=== PATIENT | female | born 1960 | race Caucasian/White ===

== ENCOUNTER → 2016-10-17 | Outpatient (CLI) | payer OTHER ==
[2016-10-17 10:12] LABS: CHLORIDE,CL 109 mmol/L (98-110); SODIUM,NA 141 mmol/L (136-146)
--- NOTE | 2016-10-17 16:25 | MY ---
EXAMINATION: Bilateral digital mammography utilizing CAD. HISTORY: Screening exam. Comparison is made to previous studies dated 08/24/2015 08/12/2014, 014, 12/29/2011. FINDINGS: Bilateral fibroglandular densities. There is a single view asymmetry within the upper ri ght breast. Otherwise, no suspicious calcifications, masses or architectural distortions. No pathol ogic appearing lymph nodes, no abnormal skin thickening or nipple inversion. Other CAD highlighted regions appear normal at this time. IMPRESSION: BI-RADS category 0 - Incomplete study. Right breast diagnostic is needed for further evaluation. THE FALSE-NEGATIVE RATE OF MAMMOGRAM IS APPROXIMATELY 10%. MANAGEMENT OF A PALPABLE ABNORMALITY MUST BE BASED UPON CLINICAL GROUNDS. SENSITIVITY FOR DETECTION OF ABNORMALITIES IN DENSE BREASTS IS LOW. NOTE: A letter will be sent to the patient regarding findings. [facility] -- FANNY Walters [phone] - FAX [phone]
== END ==
LOC: MW.MAM 09:28
PROVIDERS: ATTEND Emergency Medicine
DX: Z12.31 Encounter for screening mammogram for malignant neoplasm of breast (principal); E03.9 Hypothyroidism, unspecified; E83.19 Other disorders of iron metabolism
CPT/HCPCS: 36415; 80048; 83550; 84443; G0202

== ENCOUNTER 2021-03-11 08:59 | Day surgery (SDC) | payer OTHER ==
--- NOTE | 2021-03-11 08:55 | PCM.PREANE ---
Preanesthetic Assessment - Anesthesia/Transfusion/Family Hx Anesthesia History: Prior Anesthesia Without Reaction Family History of Anesthesia Reaction: No - Review of Systems General: No Symptoms Pulmonary: No Symptoms Cardiovascular: No Symptoms Gastrointestinal: No Symptoms Neurological: No Symptoms Other: Reports: None - Physical Assessment NPO Status Date: 03/11/21 NPO Status Time: 00:00 Height: 5 ft 3.5 in Weight: 154 lb ASA Class: 2 Mental Status: Alert & Oriented x3 Airway Class: Mallampati = 1 Dentition: Reports: Normal Dentition Thyro-Mental Finger Breadths: 3 Mouth Opening Finger Breadths: 3 ROM/Head Extension: Full Lungs: Clear to Auscultation, Normal Respiratory Effort Cardiovascular: Regular Rate, Regular Rhythm - Allergies Allergies/Adverse Reactions: Allergies Allergy/AdvReac Type Severity Reaction Status Date / Time No Known Allergies Allergy Verified 03/08/21 07:21 - Acknowledgements Anesthesia Type Planned: General Anesthesia Pt an Appropriate Candidate for the Planned Anesthesia: Yes Alternatives and Risks of Anesthesia Discussed w Pt/Guardian: Yes Pt/Guardian Understands and Agrees with Anesthesia Plan: Yes PreAnesthesia Questionnaire HEENT History: Reports: None Cardiovascular History: Reports: None Respiratory History: Reports: None Gastrointestinal History: Reports: GERD Genitourinary History: Reports: None RFID SPECIALIST History: Reports: Musculoskeletal History: Reports: Arthritis, Back Pain, Chronic Neurological History: Reports: None Psychiatric History: Reports: Anxiety, Depression Endocrine/Metabolic History: Reports: Hypothyroidism Hematologic History: Reports: None Immunologic History: Reports: None Oncologic (Cancer) History: Reports: None Dermatologic History: Reports: None - Past Surgical History Head Surgeries/Procedures: Reports: None HEENT Surgical History: Reports: Adenoidectomy, Tonsillectomy Cardiovascular Surgical History: Reports: None Respiratory Surgical History: Reports: None GI Surgical History: Reports: Bariatric Procedure, Colonoscopy Female Surgical History: Reports: Breast Biopsy, Hysterectomy, Other (See Be low) Other Female Surgeries/Procedures: hx vaginal hysterectomy with enterocele plication & posterior colporrhaphy Endocrine Surgical History: Reports: None Neurological Surgical History: Reports: Spinal Fusion Musculoskeletal Surgical History: Reports: None, Other (See Below) Other Musculoskeletal Surgeries/Procedures:: back surgery - fusion L5-L6 Oncologic Surgical History: Reports: None Dermatological Surgical History: Reports: None - SUBSTANCE USE Tobacco Use Status *Q: Never Tobacco User Recreational Drug Use History: No - HOME MEDS Home Medications: Home Meds LORazepam 1 mg PO BEDTIME 05/02/18 [History] Levothyroxine Sodium [Synthroid] 200 mcg PO ASDIRECTED 05/02/18 [History] Omeprazole 20 mg PO ASDIRECTED 05/02/18 [History] Spironolactone [Aldactone] 100 mg PO DAILY 05/02/18 [History] buPROPion HCL [Wellbutrin Xl] 300 mg PO DAILY 05/02/18 [History] estradioL [Estradiol] 1 patch TRDERM ASDIRECTED 05/02/18 [History] Acetaminophen [Tylenol Arthritis] 2 tab PO DAILY 03/08/21 [History] Calcium Carbonate [Calcium] 500 mg PO DAILY 03/08/21 [History] Cetirizine [ZyrTEC] 5 mg PO BID 03/08/21 [History] Cholecalciferol (Vitamin D3) [Vitamin D3] 5,000 units PO DAILY 03/08/21 [History] Cyanocobalamin (Vitamin B12) [Vitamin B12] 1,000 mcg PO DAILY 03/08/21 [History] Ferrous Sulfate [Slow Fe] 45 mg PO DAILY 03/08/21 [History] Fish Oil/Borage/Flax/Om3,6,9 1 [[place]esa 3-6-9 1,200 mg Softgel] 1,200 mg PO DAILY 03/08/21 [History] L.acidoph,Paracasei, B.lactis [Probiotic] 1 tab PO DAILY 03/08/21 [History] Multivit-Minerals/FA/Lycopene [One Daily Tablet] 1 tab PO DAILY 03/08/21 [History] Vitamin B Complex 1 tab PO DAILY 03/08/21 [History] - CURRENT (IN HOUSE) MEDS Current Meds: Current Medications Albuterol (Albuterol 0.083% 2.5 Mg/3 Ml Neb Soln) 2.5 mg NEB ONETIME PRN PRN Reason: Wheezing Droperidol (Droperidol 5 Mg/2 Ml Sdv) 0.625 mg IVPUSH ONETIME PRN PRN Reason: Nausea/Vomiting Fentanyl (Fentanyl 100 Mcg/2 Ml Sdv) 50 mcg IVPUSH Q5M PRN PRN Reason: Pain (mild 1-3) Hydromorphone HCl (Hydromorphone 1 Mg/Ml Syringe) 1 mg IVPUSH Q10M PRN PRN Reason: Pain (moderate 4-6) Metoclopramide HCl (Metoclopramide 10 Mg/2 Ml Sdv) 10 mg IVPUSH ONETIME PRN PRN Reason: Nausea/Vomiting Morphine Sulfate (Morphine 2 Mg/Ml Syringe) 2 mg IVPUSH Q10M PRN PRN Reason: Pain (severe 7-10) Naloxone HCl (Naloxone 0.4 Mg/Ml Sdv) 0.1 mg IVPUSH ASDIRECTED PRN PRN Reason: Respiratory Depression Ondansetron HCl (Ondansetron 4 Mg/2 Ml Sdv) 4 mg IVPUSH ONETIME PRN PRN Reason: Nausea/Vomiting Sodium Chloride (Sodium Chloride 0.9% 10 Ml Syringe) 10 ml FLUSH ASDIRECTED PRN PRN Reason: Keep Vein Open Sodium Chloride (Sodium Chloride 0.9% 2.5 Ml Syringe) 2.5 ml FLUSH ASDIRECTED PRN PRN Reason: Keep Vein Open Sodium Chloride (Sodium Chloride 0.9% 10 Ml Sdv) 10 ml IV ASDIRECTED PRN PRN Reason: IV Use Discontinued Medications Cefazolin Sodium/Dextrose 1 gm (/ Premix) 50 mls @ 100 mls/hr IV ONETIME ONE Stop: 03/11/21 05:29 Scopolamine (Scopolamine 1.5 Mg Transdermal Patch) Confirm Administered Dose 1.5 mg .ROUTE .STK-MED ONE Stop: 03/11/21 08:10
[~2021-03-11 08:59] MED LIST: Albuterol 0.083% 2.5 MG/3 ML Neb Soln NEB PRN; HYDROmorphone 1 MG/ML Syringe IVPUSH PRN; Metoclopramide 10 MG/2 ML SDV IVPUSH PRN; Morphine 2 MG/ML SYRINGE IVPUSH PRN; Naloxone 0.4 MG/ML SDV IVPUSH PRN; Ondansetron 4 MG/2 ML SDV IVPUSH PRN; Scopolamine 1.5 MG Transdermal Patch ONE; Sodium Chloride 0.9% 10 ML SDV IV PRN; Sodium Chloride 0.9% 10 ML Syringe FLUSH PRN; Sodium Chloride 0.9% 2.5 ML Syringe FLUSH PRN; ceFAZolin 1 GM in Premix Bag 1 BAG IV ONE; fentaNYL 100 MCG/2 ML SDV IVPUSH PRN
[2021-03-11] MEDS ORDERED: Dexamethasone 4 MG/ML 5 ML MDV ONE (10:17)
[2021-03-11] MEDS ORDERED: Propofol 200 MG/20 ML SDV ONE (10:17)
[2021-03-11] MEDS ORDERED: fentaNYL 100 MCG/2 ML SDV ONE ×2 (10:17→11:09)
[2021-03-11] MEDS ORDERED: Ondansetron 4 MG/2 ML SDV ONE (10:17)
[2021-03-11] MEDS ORDERED: Ketorolac 30 MG/ML SDV ONE (10:19)
[2021-03-11] MEDS ORDERED: ceFAZolin 1 GM Vial ONE (10:21)
[2021-03-11] MEDS ORDERED: Lidocaine 2% 5 ML SDV ONE (10:22)
[2021-03-11 10:26] LABS: BLOOD UREA NITROGEN,BUN 8 mg/dL (7.0-18.0); CARBON DIOXIDE,CO2 26.9 mmol/L (21.0-32.0); CHLORIDE,CL 104 mmol/L (98-107); GLUCOSE RANDOM 84 mg/dL (74-106); POTASSIUM,K 4.3 mmol/L (3.5-5.1); SODIUM,NA 139 mmol/L (136-145)
[2021-03-11] MEDS ORDERED: Lactated Ringers 1,000 ML IV SCH (11:15)
[2021-03-11] MEDS ORDERED: Ondansetron 4 MG/2 ML SDV IVPUSH PRN (11:27)
[2021-03-11] MEDS ORDERED: Promethazine 25 MG/ML SDV IM PRN (11:27)
[2021-03-11] MEDS ORDERED: Acetaminophen/oxyCODONE 325-5 MG Tab PO PRN ×2 (11:27)
[2021-03-11] MEDS ORDERED: Morphine 4 MG/ML Syringe IVPUSH PRN (11:27)
[2021-03-11] MEDS ORDERED: Ketorolac 30 MG/ML SDV IVPUSH PRN (11:27)
[2021-03-11] MEDS ORDERED: Ketorolac 30 MG/ML SDV IVPUSH ONE (11:27)
--- NOTE | 2021-03-11 11:38 | PCM.POSTAN ---
POST ANESTHESIA ASSESSMENT - MENTAL STATUS Mental Status: Alert, Oriented - VITAL SIGNS Vital Signs: Last Vital Signs Temp 98.4 F 03/11/21 11:31 Pulse 70 03/11/21 11:37 Resp 19 03/11/21 11:37 BP 117/61 03/11/21 11:37 Pulse Ox 97 03/11/21 11:37 - RESPIRATORY Respiratory Status: Respiratory Rate WNL, Airway Patent, O2 Saturation Stable - CARDIOVASCULAR CV Status: Pulse Rate WNL, Blood Pressure Stable - GASTROINTESTINAL GI Status: No Symptoms - POST OP HYDRATION Hydration Status: Adequate & Stable
--- NOTE | 2021-03-11 11:39 | PCM48HPAN ---
Post Anesthesia Note - EVALUATION WITHIN 48HRS OF ANESTHETIC Vital Signs in Normal Range: Yes Patient Participated in Evaluation: Yes Respiratory Function Stable: Yes Airway Patent: Yes Cardiovascular Function Stable: Yes Hydration Status Stable: Yes Pain Control Satisfactory: Yes Nausea and Vomiting Control Satisfactory: Yes Mental Status Recovered: Yes Vital Signs: Last Vital Signs Temp 98.4 F 03/11/21 11:31 Pulse 70 03/11/21 11:37 Resp 19 03/11/21 11:37 BP 117/61 03/11/21 11:37 Pulse Ox 97 03/11/21 11:37
--- NOTE | 2021-03-11 11:40 | PCM.OPNOTE ---
- General Post-Op/Procedure Note Date of Surgery/Procedure: 03/11/21 Operative Procedure(s): Posterior colporrhaphy with perineorrhaphy Findings: 3rd degree rectocele Pre Op Diagnosis: Symptomatic rectocele Post-Op Diagnosis: Same Anesthesia Technique: General LMA Primary Surgeon: Rosy Armenta Pet Feeder: Rashmi Holt Pathology: vaginal mucosa Fluid Replacement, Intraop: 800 EBL in mLs: 50 Condition: Stable Free Text/Narrative:: Dictation [id number]
--- NOTE | 2021-03-11 17:59 | PCM.SN.2 ---
- Free Text/Narrative Note: Patient is doing well overall. Explained intraoperative findings. Packing removed, will remove flores catheter and allow discharge to home. Discharge instructions reviewed. Follow up at [facility] 2 weeks. Time Documentation
--- NOTE | 2021-03-11 19:17 | OR ---
SURGEON: Rosy Armenta M.D. DATE OF PROCEDURE: 03/11/2021 PREOPERATIVE DIAGNOSIS: Symptomatic third-degree rectocele. POSTOPERATIVE DIAGNOSIS: Symptomatic third-degree rectocele. PROCEDURE: Posterior colporrhaphy with perineorrhaphy. PRIMARY SURGEON: Rosy Armenta M.D. LIME VAT TENDER: Rashmi Holt MD ANESTHESIA: General LMA. ESTIMATED BLOOD LOSS: Fifty. FLUIDS: 800 mL of crystalloid. COMPLICATIONS: None known. FINDINGS: Symptomatic third-degree rectocele. DISPOSITION: The patient to PACU, stable. PROCEDURE DETAILS: Nicolle is a 60-year-old female who has ongoing difficulties with symptomatic rectocele. At this time, she would like to proceed with surgical intervention. Proper consent obtained. The patient was taken to the operating room where she underwent general LMA, was placed in modified dorsal lithotomy position. She was prepped and draped in the usual sterile fashion. Esposito to gravity, received prophylactic antibiotics. Time-out was performed. Anterior Raúl was placed into the vagina. On either edge of the vaginal introitus at the 5 and 7 o'clock positions, an Allis was placed and an inverted V wedge of tissue was now resected using 10-blade scalpel. Along the midline of the posterior vaginal mucosa, hydrodissection was performed with spinal needle and normal saline. Then, a sagittal midline vaginal mucosal incision was created with Metzenbaum scissors, dissecting the overlying mucosa away from the underlying muscularis tissue. The edges of the mucosa were now grasped with Allis clamps in sterile fashion and the overlying mucosa was dissected sharply and bluntly away from underlying muscularis tissue. There was more muscularis tissue on the patient's right side than the left side. On the left side, the areas had very little support tissue left. I was able to then dissect this region, was able to plicate some of the right muscularis tissue more so over to the left side to allow reduction of the defect. This was performed with inverted mattress suture technique in sterile fashion. Rectal exam was performed which revealed defect was repaired. Glove changed. Once this was reduced, the excess vaginal mucosa was trimmed and the mucosa was reapproximated using 2-0 Vicryl in continuous running locked fashion. The perineum was now repaired by plicating the deeper subcutaneous tissue in continuous running locked fashion followed by the subcuticular edges were now reapproximated using a 4-0 Caprosyn. The introitus allowed for introduction of a sponge stick. The mucosa was inspected. The incision line inspected and found to be hemostatic. Specimen will go to Pathology. Vaginal packing was now gently placed. Sponge, instrument, and needle count was correct x2. The patient will go to PACU in stable condition. SPECIMEN: To Pathology. SAMY / KANNAN /[id number] MTDD
== END 2021-03-11 18:50 | disposition home or self-care (01) ==
LOC: MW.SDS 08:59 → MW.MS 11:27 → MW.SDS 18:50
PROVIDERS: ATTEND Obstetrics & Gynecology
DX: N81.6 Rectocele (principal); E03.9 Hypothyroidism, unspecified; Z98.890 Other specified postprocedural states; Z79.899 Other long term (current) drug therapy
CPT/HCPCS: 36415; 57250; 80048; 84703; 85027; 86850; 86900; 86901; A9270; J0690; J1100; J1170; J1885; J2704; J3010; J7120; 00942; J2405